=== PATIENT | female | born 1985 | race Caucasian/White ===

== ENCOUNTER 2017-04-02 11:57 | Emergency (ER) | payer MEDICAID ==
[~2017-04-02] VITALS: Ht 167.6 cm; Wt 73.5 kg
[2017-04-02] MEDS ORDERED: normal saline 1000ML IV soln IVB ONE ×2 (12:25→14:15)
[2017-04-02 12:51] LABS: BASOPHILS % (AUTO) 0.1 % (0-1); EOSINOPHILS # (AUTO) 0.1 X10'3 (0-0.9); EOSINOPHILS % (AUTO) 1.9 % (0-6); HEMATOCRIT 35.7 % (35.0-45.0); LYMPHOCYTES # (AUTO) 0.8 X10'3 (1.1-4.8); LYMPHOCYTES % (AUTO) 14.8 % (21-51); MEAN CORPUSCULAR HEMOGLOBIN 28.9 PG (27.0-31.0); MEAN CORPUSCULAR HGB CONC 33.6 % (33.0-36.5); MEAN CORPUSCULAR VOLUME 85.8 FL (78-98); MONOCYTES # (AUTO) 0.4 X10'3 (0-0.9); MONOCYTES % (AUTO) 6.8 % (2-12); NEUTROPHILS # (AUTO) 4.3 X10'3 (1.8-7.7); NEUTROPHILS % (AUTO) 76.4 % (42-75); PLATELET COUNT 197 X10'3 (140-440); RED BLOOD COUNT 4.16 X10'6 (4.20-5.60); RED CELL DISTRIBUTION WIDTH 16.1 % (11.5-14.5); WHITE BLOOD COUNT 5.7 X10'3 (4.5-11.0)
[2017-04-02 13:01] LABS: PROTHROMBIN TIME 10.1 SECONDS (9.0-12.0)
[2017-04-02 13:15] LABS: ALANINE AMINOTRANSFERASE 22 U/L (12-78); ALBUMIN 2.9 G/DL (3.4-5.0); ALBUMIN/GLOBULIN RATIO 0.7 (1.1-1.5); ALKALINE PHOSPHATASE 95 IU/L (46-116); ANION GAP 9 (8-16); ASPARTATE AMINO TRANSFERASE 25 U/L (10-37); BILIRUBIN,TOTAL 0.2 MG/DL (0.1-1.0); BLOOD UREA NITROGEN 7 MG/DL (7-18); BUN/CREATININE RATIO 14.9 (6.6-38.0); CALCIUM 8.6 MG/DL (8.5-10.1); CHLORIDE 102 MMOL/L (99-107); CREATININE 0.47 MG/DL (0.40-0.90); GLUCOSE 95 MG/DL (70-104); POTASSIUM 3.6 MMOL/L (3.5-5.1); SODIUM 133 MMOL/L (135-145); TOTAL CARBON DIOXIDE 21.7 MMOL/L (24-32); TOTAL PROTEIN 6.9 G/DL (6.4-8.2); eGFR > 90 ML/MIN
[2017-04-02 13:50] LABS: CLARITY,URINE CLOUDY (Clear); COLOR,URINE YELLOW (Yellow); GLUCOSE, URINE NEGATIVE (Neg); KETONES,URINE 15 mg/dl (Neg); LEUKOCYTE ESTERASE ,URINE MODERATE (Neg); NITRITES, URINE POSITIVE (Neg); OCCULT BLOOD,URINE NEGATIVE (Neg); PROTEIN,URINE NEGATIVE (Neg); UROBILINOGEN,URINE 0.2 E.U/dL (0.2-1.0)
[2017-04-02 13:51] LABS: UA COLLECTION TYPE CLN CATCH MIDSTREAM
[2017-04-02] MEDS ORDERED: ONDA4TAB9 PO (13:51)
[2017-04-02] MEDS ORDERED: TAM75C PO (13:51)
[2017-04-02] MEDS ORDERED: AMOX-580 PO (13:51)
[2017-04-02 13:55] LABS: BACTERIA,URINE 4+ /HPF (Neg); MUCUS STRANDS MANY /LPF (Neg); SQUAMOUS EPITHELIAL CELL,UR MANY /LPF (FEW)
[2017-04-02 13:56] LABS: TRANSITIONAL EPI CELLS,URINE FEW /HPF; WBC,URINE 30-50 /HPF (0-4)
[2017-04-02 13:57] LABS: RBC,URINE NONE SEEN /HPF (0-2)
[2017-04-02] MEDS ORDERED: ondansetron 4mg rapidly disintigrating tab PO ONE (14:00)
[2017-04-02] MEDS ORDERED: cephalexin 250mg capsule PO ONE (14:00)
[2017-04-02] MEDS ORDERED: ONDA4TAB12 PO (14:04)
[2017-04-02] MEDS ORDERED: CEPH500C5 PO (14:04)
[2017-04-02] MEDS ORDERED: metoclopramide 5 mg/ml inj IV ONE (14:10)
[2017-04-02 15:25] LABS: URINE HCG POSITIVE (NEG)
[2017-04-02 16:03] VITALS: BP 118/80
== END 2017-04-02 16:05 | disposition home or self-care (01) ==
LOC: ER 11:57
DX: O98.512 Other viral diseases complicating pregnancy, second trimester (principal); O23.42 Unspecified infection of urinary tract in pregnancy, second trimester; B34.9 Viral infection, unspecified; Z3A.20 20 weeks gestation of pregnancy; Z88.5 Allergy status to narcotic agent
CPT/HCPCS: 36415; 80053; 81001; 81025; 85025; 85610; 96361; 96374; 99285; J2765; J7030; 99284